=== PATIENT | female | born 1975 | race African-American/Black ===

== ENCOUNTER 2017-01-21 20:38 | Emergency (ER) | payer OTHER ==
--- NOTE | ~2017-01-21 | CR72 ---
[facility] A Service of [facility] & [facility] RADIOLOGY TEXT RESULTS PATIENT: LYNNETTE GOMEZ LOCATION: [facility] : 75 UNIT #: [id number] AGE: [address]: Thu Winter MD SEX: F ORDER DR: [id number] [facility] [address] [place], [place] [address] [id number] E MR#: [id number] Acc #: [id number] NAME: LYNNETTE GOMEZ : 1975 SEX: F STUDY DATE/TIME: 01/21/2017 21:58 UNIT: [facility] ROOM: STUDY DESCRIPTION: CR Chest Single View Portable Attending Physician: Thu Winter M.D. Ordering Physician: Thu Winter M.D. MEDICAL IMAGING REPORT This report is preliminary unless electronic signature is present EXAM Portable chest HISTORY Cough. Pneumonia. Chest pain for 1 week. FINDINGS Moderately dense right inferior perihilar infiltrate and [id number]-uz-botdypms infiltrates in the left mid lung and in the lateral right mid lung. Considerations include multifocal pneumonia. Correlation to the patient's history and symptoms is recommended and short-term follow-up chest x-ray is suggested. No pleural effusions. Cardiac size and pulmonary vascularity are normal. Dictated by... Jh Sweeney M.D. THIS IS AN ELECTRONICALLY VERIFIED REPORT Jh Sweeney M.D. at 01/22/2017 11:27 PM DFL/silvino TD: 01/22/2017 01:50 JOB #: [id number] MEDICAL IMAGING REPORT Page 1 of 1 COPY
[2017-01-21 22:00] LABS: POC - CKMB <1.0 ng/mL (0.0-7.9); POC - TROPONIN <0.05 ng/mL (<=0.05)
[2017-01-21 22:07] LABS: BASOPHIL% 0.2 % (0-2.5); DIFF IND YES; EOSINOPHIL% 0.2 % (0.0-7.0); HEMATOCRIT 39.1 % (35.0-45.0); HEMOGLOBIN 12.8 gm/dL (12.0-16.0); LYMPHOCYTE# 2.1 X10e3 (1.0-3.5); LYMPHOCYTE% 13.1 % (17.0-45.0); MEAN CELL VOLUME 92.9 FL (83-96); MEAN CORPUSCULAR HEMOGLOBIN 30.4 PG (28-34); MEAN CORPUSCULAR HGB CONC 32.7 g/dL (30-36); MONOCYTE# 0.8 X10e3 (0-1.0); MONOCYTE% 5.1 % (3.0-12.0); NEUTROPHIL% 81.4 % (40-75); PLATELET COUNT 306 X10e3 (140-420); RED BLOOD COUNT 4.21 X10e (3.90-5.30); RED CELL DISTRIBUTION WIDTH 14.4 % (11.0-15.5)
[2017-01-21 22:33] LABS: BUN/CREATININE RATIO 11.25; CALCIUM SERUM 8.7 mg/dL (8.4-10.2); CREATININE SERUM 0.8 mg/dL (0.6-1.4); GLOM FILT RATE Estimated 106.2 mL/min (>60)
[2017-01-21 23:00] LABS: PLATELET ESTIMATE NORMAL (NORMAL); RBC NORMAL YES; SMUDGE CELLS 2 /100
== END 2017-01-21 23:40 | disposition home or self-care (01) ==
LOC: CED 20:38
PROVIDERS: Student in an Organized Health Care Education/Training Program
DX: J18.9 Pneumonia, unspecified organism (principal); I10 Essential (primary) hypertension; F17.200 Nicotine dependence, unspecified, uncomplicated; E87.6 Hypokalemia
CPT/HCPCS: 36415; 71010; 80048; 82553; 84484; 85025; 96361; 96365; 96375; 99285; J0696; J1885